=== PATIENT | female | born 1970 | race Caucasian/White ===

== ENCOUNTER 2016-12-05 09:31 | Emergency (ER) | payer BC, OTHER ==
[2016-12-05 09:31] VITALS: BMI 26.6
[2016-12-05 09:33] VITALS: TEMP 98.4
[2016-12-05] MEDS ORDERED: ONDANSETRON HCL 4 MG/2 ML VIAL IV ONE (10:09)
[2016-12-05] MEDS ORDERED: NS 1,000 ML IV ONE (10:09)
[2016-12-05] MEDS ORDERED: SODIUM CHLORIDE 0.9% 10 ML FLUSH FLUSH PRN (10:09)
[2016-12-05] MEDS ORDERED: DICYCLOMINE 10 MG CAP PO ONE (10:10)
--- NOTE | 2016-12-05 10:13 | EDPRACDOC ---
- General Information Chief Complaint: Nausea,Vomiting,Diarrhea Stated Complaint: N/V/D Time Seen by Provider: 12/05/16 09:48 Information Source: Patient Mode Of Arrival: Car Home Medications: Home Medications Fluoxetine [Prozac] 40 mg PO DAILY 09/10/15 Dextroamphetamine/Amphetamine [Adderall 5 mg Tablet] 5 mg PO 1200 12/05/16 Dextroamphetamine/Amphetamine [Adderall Xr 20 mg Capsule] 20 mg PO QAM 12/05/16 Dicyclomine HCl [Bentyl] 20 mg PO Q8H PRN #20 tab 12/05/16 Promethazine [Phenergan] 25 mg PO Q4-6H PRN #15 tab 12/05/16 Zolpidem Tartrate [Ambien] 10 mg PO HS 12/05/16 Allergies/Adverse Reactions: Allergies Allergy/AdvReac Type Severity Reaction Status Date / Time hydrocodone Allergy Rash-Genera Verified 12/05/16 11:06 lized oxycodone Allergy Rash-Genera Verified 12/05/16 11:06 lized - History of Present Illness Onset: yesterday 7pm HPI: Pt c/o generalized abd pain, n/v/d tntc in 24 hours with chills. Pt states ate shrimp from restaurant yesterday. Denies cough, congestion, cp, sob, body aches , rash. Symptoms Occured: Reports: Spontaneous Duration: Reports: Since Onset Emesis: Reports: Food Particles Recent: Reports: None Pain Quality: Reports: Aching Pain Severity: Mild Pain Location: Reports: Diffuse Associated Signs & Symptoms: Reports: Nausea, Vomiting, Diarrhea, Chills Oral Intake: Decreased Urinary Output: Normal ED Past Medical History - History Reviewed Yes Nurses notes reviewed and agree except as marked - Patient Medical History Surgical History: Reports: Hysterectomy - Social Medical History Smoking Status: Never smoker ETOH: None Substance Abuse: None EDM Review of Systems - Review of Systems Constitutional: Chills Ears: No Symptoms Reported. negative: Pain, Hearing Loss, Drainage, Ear Pulling Throat: No Symptoms Reported. negative: Pain, Swelling Nose: No Symptoms Reported. negative: Congestion, Bleeding, Discharge, Injection, Swelling, Deformity, Ecchymosis, Tender, Abrasion, Laceration Mouth: No Symptoms Reported. negative: Pain, Drooling Respiratory: No Symptoms Reported. negative: Cough, Brassy Cough, Barky Cough, Shortness of Breath, Wheezing, Hemoptysis Cardiovascular: No Symptoms Reported. negative: Chest Pain, Palpitations, Syncope, Edema, Orthopnea, PND, Skin Mottling, Cyanosis Gastrointestinal: Diarrhea, Nausea, Pain, Vomiting Genitourinary: No Symptoms Reported. negative: Dysuria, Hematuria, Frequency, Discharge, Bleeding, Testicular Pain, Neurological: No Symptoms Reported. negative: Headache, Dizziness, Seizure, Numbness, Weakness, Speech Difficulty, Gait Difficulty Musculoskeletal: No Symptoms Reported. negative: Neck, Chestwall, Ribs, Back, Shoulder, Arm, Elbow, Forearm, Wrist, Hand, Pelvis, Hip, Femur, Knee, Leg, Ankle , Foot Integumentary: No Symptoms Reported. negative: Itching, Rash, Bruising, Wound Allergic/Immunologic: No Symptoms Reported. negative: Hives, Itching Hematologic: No Symptoms Reported. negative: Lymphadenopathy, Easy Bruising, Easy Bleeding Psychiatric: No Symptoms Reported. negative: Anxiety, Depression, Hallucinations, Insomnia, Suicidal - Physical Exam Constitutional: Alert Oriented to: Time, Person, Place Last recorded Vital Signs: Last Vital Signs Temp 98.4 F 12/05/16 09:33 Pulse 100 12/05/16 09:33 Resp 18 12/05/16 09:33 BP 124/68 12/05/16 09:33 Pulse Ox 100 12/05/16 09:33 Oxygen Pulse Oxygen Saturation 100 O2 Device Oxygen Flow Rate Fraction of Inspired Oxygen ( FIO2) - HEENT Head: Normal ( normocephalic) Eye Exam: Normal (PERRL, EOMI, Sclera white) Oropharynx: Normal (Pharynx:Moist without exudate,Gums-no swelling) Tympanic Membrane: Normal ENT EAC: Normal Nose: No Symptoms Reported (septum midline) Neck: Normal (FROM, trachea at midline) - Respiratory/Cardiovascular Respiratory: Normal - CTA (BBS clear to auscultation without adventitious sounds ) Cardiovascular: Normal (RRR without murmur, gallop or rub) - GI Auscultation: Normal (NABS) Palpation: Normal (Soft,No rebound or guarding, non distended) Tenderness: Diffuse, Mild - Musculoskeletal Back: Normal (Non-Tender) Extremities: Normal (Normal tone, Pulses 2+ No cyanosis or edema, FROM) - Integumentary Skin: Normal, Warm, Dry Lymphatics: Normal (no adenopathy) - Neurologic Memory Impaired: Normal Motor Function: Normal (Normal tone, Pulses 2+ No cyanosis or edema, FROM) Mood Description: Normal Perception: Normal - Differential Diagnosis Diarrhea Bacterial, Dehydration, Diarrhea Viral, Food poisoning, Gastritis, Gastroenteritis, Pancreatitis, Urinary tract infection - Results 12/05/16 10:22 12/05/16 10:22 12/05/16 12:07 Laboratory Results - last 24 hr 12/05/16 12/05/16 12/05/16 10:22 10:22 11:45 WBC 18.0 H RBC 5.36 Hgb 15.0 Hct 45.2 MCV 84 MCH 28.1 MCHC 33.3 RDW 13.1 Plt Count 242 MPV 8.1 Neut % (Auto) Cancelled Lymph % (Auto) Cancelled [place] % (Auto) Cancelled Eos % (Auto) Cancelled Baso % (Auto) Cancelled Absolute Neuts (auto) Cancelled Absolute Lymphs (auto) Cancelled Seg Neuts % (Manual) 83 H Band Neutrophils % 5 Lymphocytes % (Manual) 4 L Monocytes % (Manual) 8 Absolute Neutrophils 15.84 H Absolute Lymphocytes 0.72 Platelet Estimate Norm RBC Morphology Norm Sodium 141 Potassium 4.4 Chloride 105 Carbon Dioxide 27 Anion Gap 13 BUN 18 H Creatinine 0.70 Estimated GFR (MDRD) > 60 Glucose 113 H Calculated Osmolality 274 Calcium 9.0 Total Bilirubin 1.2 AST 23 ALT 36 Alkaline Phosphatase 96 Total Protein 7.7 Albumin 4.1 Lipase 28 Urine Color Yellow Urine Clarity Sl cldy Urine pH 7.0 Ur Specific [place] 1.010 Urine Protein 1+ H Urine Glucose (UA) Neg Urine Ketones Neg Urine Occult Blood Neg Urine Nitrite Neg Urine Bilirubin Neg Urine Urobilinogen 2 H Ur Leukocyte Esterase Neg Urine RBC 10-20 H Urine WBC 0-2 Ur Epithelial Cells 2+ Urine Bacteria Few Urine Mucus Mod H Decision Time to Discharge: 12:08 - Departure Disposition: Home Condition: Good Final Diagnosis: Nausea and vomiting Diarrhea Qualifiers: Diarrhea type: unspecified type Qualified Code(s): R19.7 - Diarrhea, unspecified Instructions: Acute Diarrhea (ED), Acute Nausea and Vomiting (ED) Education/Counseling Given To: Patient Education/Counseling Given Regarding: Diagnosis, Treatment, Follow Up Referrals: None,No Provider [Primary Care Provider] - One Week Charles Wright MD [Staff Physician] - One Week Prescriptions: New Dicyclomine HCl [Bentyl] 20 mg PO Q8H PRN #20 tab PRN Reason: Pain Promethazine [Phenergan] 25 mg PO Q4-6H PRN #15 tab PRN Reason: Nausea/Vomiting No Action Fluoxetine [Prozac] 40 mg PO DAILY Zolpidem Tartrate [Ambien] 10 mg PO HS Dextroamphetamine/Amphetamine [Adderall Xr 20 mg Capsule] 20 mg PO QAM Dextroamphetamine/Amphetamine [Adderall 5 mg Tablet] 5 mg PO 1200 Additional Instructions: Drink sips of Gatorade every 2-3 minutes while awake. Do NOT drink large volumes of fluid at once. If you vomit, take the nausea-vomiting medicine prescribed, wait ~ 30 minutes, and restart the sipping process. Return to the Emergency Department if you think you are getting dehydrated, have persistent abdominal pain that is unrelenting, have worse or different symptoms, or any concerns.
[2016-12-05 10:43] LABS: MPV 8.1 fL (7.4-10.4)
[2016-12-05 11:01] LABS: BLOOD UREA NITROGEN 18 MG/DL (7-17); CALCULATED OSMOLALITY 274 MOs/Kg (270-290); CHLORIDE 105 mEq/L (98-107); GLUCOSE 113 mg/dL (70-99); SODIUM LEVEL 141 mEq/L (137-146); TOTAL PROTEIN 7.7 G/DL (6.3-8.2)
[2016-12-05 11:11] LABS: SEG NEUTROPHIL 83 % (45-76)
[2016-12-05 12:00] LABS: LEUKOCYTES/URINE NEG (NEGATIVE); NITRITE/URINE NEG (NEGATIVE); URINE OCCULT BLOOD NEG (NEG/TRACE); WBC/URINE 0-2 (0-5)
[2016-12-05 12:34] VITALS: BP 116/60; PULSE 72
== END 2016-12-05 12:33 | disposition home or self-care (01) ==
LOC: ED 09:31
DX: R11.2 Nausea with vomiting, unspecified (principal); R19.7 Diarrhea, unspecified
CPT/HCPCS: 36415; 80053; 81001; 83690; 85007; 85027; 96361; 96374; 99284; J2405; J3490